=== PATIENT | female | born 1960 | race Caucasian/White ===

== ENCOUNTER 2016-12-26 09:15 | Emergency (ER) | payer SELFPAY ==
--- NOTE | 2016-12-26 10:25 | ER Document Report ---
ED Skin Rash/Insect Bite/Abscs - General Chief Complaint: Skin Problem Stated Complaint: RASH Time seen by provider: 09:50 Mode of Arrival: Ambulatory Information source: Patient Notes: 56-year-old female presents to ED for ringworm to bilateral legs and arms and back. States they started about 3 weeks ago with one on her left leg which has spread to these other areas since then. TRAVEL OUTSIDE OF THE [place] IN LAST 30 DAYS: No - HPI Patient complains to provider of: Other - Ringworm to bilateral legs and arms and back Onset: Other Onset/Duration: Gradual - 3 weeks gradually increased in number Quality of pain: No pain Severity: None Pain Level: Denies Skin Character: Other - Ringworm Exacerbated by: Denies Relieved by: Denies Similar symptoms previously: Yes Recently seen / treated by doctor: No - Related Data Allergies/Adverse Reactions: No Known Allergies Allergy (Verified 12/26/16 09:21) Past Medical History - General Information source: Patient - Social History Smoking Status: Current Every Day Smoker Chew tobacco use (# tins/day): Yes Frequency of alcohol use: Social Drug Abuse: None Occupation: none Lives with: Spouse/Significant other Family History: Arthritis, DM, Hypertension, Thyroid Disfunction Patient has suicidal ideation: No Patient has homicidal ideation: No - Past Medical History Cardiac Medical History: Reports: None Pulmonary Medical History: Reports: None EENT Medical History: Reports: None Neurological Medical History: Reports: None Endocrine Medical History: Reports: None Renal/ Medical History: Reports: None Malignancy Medical History: Reports: None GI Medical History: Reports: None Musculoskeltal Medical History: Reports None Skin Medical History: Reports None Psychiatric Medical History: Reports: None Traumatic Medical History: Reports: None Infectious Medical History: Reports: None Surgical Hx: Negative Past Surgical History: Reports: None - Immunizations Immunizations up to date: Yes Hx Diphtheria, Pertussis, Tetanus Vaccination: Yes Review of Systems - Review of Systems Constitutional: No symptoms reported EENT: No symptoms reported Cardiovascular: No symptoms reported Respiratory: No symptoms reported Gastrointestinal: No symptoms reported Genitourinary: No symptoms reported Female Genitourinary: No symptoms reported Musculoskeletal: No symptoms reported Skin: Lesions - Bilateral legs bilateral arms and back Hematologic/Lymphatic: No symptoms reported Neurological/Psychological: No symptoms reported Physical Exam - Vital signs Vitals: Temp Pulse Resp BP Pulse Ox 98.2 F 123 H 18 158/95 H 96 12/26/16 09:18 12/26/16 09:18 12/26/16 09:18 12/26/16 09:18 12/26/16 09:18 Interpretation: Normal - General General appearance: Appears well, Alert - HEENT Head: Normocephalic, Atraumatic Eyes: Normal Pupils: PERRL - Respiratory Respiratory status: No respiratory distress Chest status: Nontender Breath sounds: Normal Chest palpation: Normal - Cardiovascular Rhythm: Regular Heart sounds: Normal auscultation Murmur: No - Abdominal Inspection: Normal Distension: No distension Bowel sounds: Normal Tenderness: Nontender Organomegaly: No organomegaly - Back Back: Normal, Nontender - Extremities General upper extremity: Normal inspection, Nontender, Normal color, Normal ROM , Normal temperature General lower extremity: Normal inspection, Nontender, Normal color, Normal ROM , Normal temperature, Normal weight bearing. No: Aminta's sign - Neurological Neuro grossly intact: Yes Cognition: Normal Orientation: AAOx4 Peggy Coma Scale Eye Opening: Spontaneous [place] Coma Scale Verbal: Oriented Peggy Coma Scale Motor: Obeys Commands [place] Coma Scale Total: 15 Speech: Normal Motor strength normal: LUE, RUE, LLE, RLE Sensory: Normal - Psychological Associated symptoms: Normal affect, Normal mood - Skin Skin Temperature: Warm Skin Moisture: Dry Skin Color: Normal Character of irregularity: Erythematous, Urticarial, Other - Circular Irregularity with: Thickening, Scaling, Well defined border, Inflammation Course - Vital Signs Vital signs: Temp Pulse Resp BP Pulse Ox 97.8 F 102 H 18 168/87 H 96 12/26/16 10:30 12/26/16 10:30 12/26/16 09:18 12/26/16 10:30 12/26/16 10:30 Discharge - Discharge Clinical Impression: Ringworm of body Condition: Stable Disposition: HOME, SELF-CARE Instructions: Family Physicians / Practices Additional Instructions: Ringworm (Tinea Corporis) You have a fungal infection of the skin, called tinea corporis. This is sometimes called "ringworm." because it tends forms an enlarging ring on the skin. The infection results from exposure to another person or an animal carrying the fungus, but it is only mildly contagious. There can be mild itching , or sometimes no symptoms at all. The infection is usually treated with antifungal cream. This is applied two or three times daily. Healing may take two or three weeks. Occasionally, oral medication is necessary, for example, when the infection if very large, or if fungus involves the scalp or nails. Fingernail or toenail infections are very difficult to eradicate, often requiring many weeks of treatment. Return for re-examination if your symptoms change significantly -- for example, if you develop fever or chills, red streaks, increasing tenderness, swelling, or blisters at the infection site. Please will be treated with Mycolog cream. Please apply a thin area to each ringworm 2 times a day on your legs arms and back after cleaning an area well with soap and water and pat dry. You will need to do this for 1-2 weeks and is still no relief please follow-up with dermatology or your primary doctor. FOLLOW-UP CARE: If you have been referred to a physician for follow-up care, call the physician s office for an appointment as you were instructed or within the next two days. If you experience worsening or a significant change in your symptoms, notify the physician immediately or return to the Emergency Department at any time for re-evaluation. Prescriptions: Nystatin/Triamcin [Mycolog-II Cream] 1 applic TP BID #1 tube Referrals: DAMARIS HERNANDEZ DO [ACTIVE STAFF] - Follow up as needed
[2016-12-26 10:33] VITALS: BP 168/87
== END 2016-12-26 10:31 | disposition home or self-care (01) ==
LOC: ER 09:15
DX: B35.4 Tinea corporis (principal); F17.210 Nicotine dependence, cigarettes, uncomplicated
CPT/HCPCS: 99282

== ENCOUNTER 2017-04-20 08:58 | Emergency (ER) | payer SELFPAY ==
[2017-04-20] MEDS ORDERED: MUPIROCIN 2% OINTMENT 22 GM TP ONE (09:49)
[2017-04-20] MEDS ORDERED: SULFAMETHOXAZOLE/TRIMETHOPRIM 800-160 MG TABLET PO ONE (09:49)
[2017-04-20] MEDS ORDERED: CEPHALEXIN 500 MG CAPSULE PO ONE (09:50)
--- NOTE | 2017-04-20 09:55 | ER Document Report ---
ED Skin Rash/Insect Bite/Abscs - General Chief Complaint: Skin Problem Stated Complaint: RASH Time Seen by Provider: 04/20/17 09:49 Mode of Arrival: Ambulatory Information source: Patient TRAVEL OUTSIDE OF THE [place] IN LAST 30 DAYS: No - HPI Patient complains to provider of: Skin rash/lesion Onset: Other - 2 weeks Onset/Duration: Persistent Quality of pain: Achy Severity: Mild Skin Character: Rash Skin Temperature: Warm Quality of rash: Itchy, Painful Identify cause: No Exacerbated by: Denies Relieved by: Denies Similar symptoms previously: No Recently seen / treated by doctor: No Notes: 57-year-old female who presents to the emergency room complaining of rash is been present over the past 2 weeks, she was previously using creams and ointments on it but it is gotten worse, she was diagnosed with ringworm in the beginning but the medication did not work as well, she denies any new lotions, detergents soaps, she did get 2 new cats but that was after the rash had initially started, she denies any history of similar symptoms previously, no fevers, no injury - Related Data Allergies/Adverse Reactions: No Known Allergies Allergy (Verified 04/20/17 09:05) Past Medical History - General Information source: Patient - Social History Smoking Status: Current Every Day Smoker Family History: Arthritis, DM, Hypertension, Thyroid Disfunction Patient has suicidal ideation: No Patient has homicidal ideation: No Renal/ Medical History: Denies: Hx Peritoneal Dialysis Surgical Hx: Negative - Immunizations Immunizations up to date: Yes Hx Diphtheria, Pertussis, Tetanus Vaccination: Yes Review of Systems - Review of Systems Constitutional: No symptoms reported EENT: No symptoms reported Cardiovascular: No symptoms reported Respiratory: No symptoms reported Gastrointestinal: No symptoms reported Genitourinary: No symptoms reported Female Genitourinary: No symptoms reported Musculoskeletal: No symptoms reported Skin: See HPI Hematologic/Lymphatic: No symptoms reported Neurological/Psychological: No symptoms reported -: Yes All other systems reviewed and negative Physical Exam - Vital signs Vitals: Temp Pulse Resp BP Pulse Ox 97.8 F 102 H 18 140/95 H 93 04/20/17 09:05 04/20/17 09:05 04/20/17 09:05 04/20/17 09:05 04/20/17 09:05 - Notes Notes: - General General appearance: Appears well, Alert In distress: None - HEENT Head: Normocephalic, Atraumatic Eyes: Normal Conjunctiva: Normal Extraocular movements intact: Yes Eyelashes: Normal Pupils: PERRL - Respiratory Respiratory status: No respiratory distress - Cardiovascular Rhythm: Regular - Abdominal Inspection: Normal - Back Back: Normal - Extremities General upper extremity: Normal inspection General lower extremity: Normal inspection - Neurological Neuro grossly intact: Yes Orientation: AAOx4 [place] Coma Scale Eye Opening: Spontaneous [place] Coma Scale Verbal: Oriented Peggy Coma Scale Motor: Obeys Commands Peggy Coma Scale Total: 15 - Psychological Associated symptoms: Normal affect, Normal mood - Skin Skin Temperature: Warm Skin Moisture: Dry - Skin Location of irregularity: Back, Extremities Character of irregularity: Maculopapular, Erythematous Irregularity with: Tenderness, Induration, Scaling, Crusting, Inflammation, Other - Patient with erythematous, scabbed, crusting, weeping rash to bilateral lower extremities, tenderness, edema, distal sensation and motor is intact Course - Re-evaluation Re-evalutation: 04/20/17 09:53 This rash appears to be possibly impetigo as it has a yellow crusting to some areas, she will be started on antibiotics and provided with Bactroban ointment, follow-up with a primary care provider or return if symptoms worsen, patient acknowledges understanding and agreement with this plan - Vital Signs Vital signs: Temp Pulse Resp BP Pulse Ox 97.8 F 102 H 18 140/95 H 93 04/20/17 09:05 04/20/17 09:05 04/20/17 09:05 04/20/17 09:05 04/20/17 09:05 Discharge - Discharge Clinical Impression: Impetigo Instructions: Bactroban Ointment ([facility]), Cephalexin ([facility]), Impetigo ([facility]) Additional Instructions: Follow up with your primary care provider in one to 2 days. Return to the emergency room immediately if symptoms worsen or any additional concerns. Prescriptions: Cephalexin Monohydrate [Keflex 500 mg Capsule] 500 mg PO BID #20 capsule Mupirocin [Bactroban 2% Ointment 22 gm] 1 applic TP TID #1 tube Sulfamethoxazole/Trimethoprim [Bactrim Ds Tablet] 1 each PO BID #20 tablet Forms: Smoking Cessation Education
[2017-04-20] MEDS ORDERED: HYDROCODONE/ACETAMINOPHEN 5-325 MG 6 TAB/DSPK PO PRN (09:56)
[2017-04-20 10:18] VITALS: BP 131/78
== END 2017-04-20 10:18 | disposition home or self-care (01) ==
LOC: ER 08:58
DX: L01.00 Impetigo, unspecified (principal); R21 Rash and other nonspecific skin eruption; F17.200 Nicotine dependence, unspecified, uncomplicated
CPT/HCPCS: 99283; J3490